=== PATIENT | male | born 1990 | race African-American/Black ===

== ENCOUNTER 2023-05-11 08:36 | Emergency (ER) | payer BC, OTHER ==
[~2023-05-11] VITALS: Ht 198.1 cm; Wt 154.1 kg
[2023-05-11] MEDS ORDERED: LEVO750T40 PO (10:44)
[2023-05-11] MEDS ORDERED: CLIN300C70 PO (10:44)
[2023-05-11] MEDS ORDERED: cloNIDine HCL 0.1 MG TAB PO ONE (10:45)
[2023-05-11] MEDS ORDERED: cefTRIAXone SOD 1,000 MG VL IM ONE (10:45)
[2023-05-11 10:47] VITALS: BP 147/100; TEMP 98.3
[2023-05-11 11:03] VITALS: PULSE 74; RESP 16; O2SAT 99
== END 2023-05-11 11:48 | disposition home or self-care (01) ==
LOC: ER 08:36
DX: N45.1 Epididymitis (principal); I10 Essential (primary) hypertension; Z98.890 Other specified postprocedural states
CPT/HCPCS: 76870; 96372; 99285; J0696

== ENCOUNTER 2024-05-12 08:39 | Emergency (ER) | payer BC, OTHER ==
[~2024-05-12] VITALS: Ht 198.1 cm; Wt 155.0 kg
[~2024-05-12 08:39] MED LIST: CLIN1CAP70 PO; LEVO750T40 PO
[2024-05-12 09:17] LABS: Urine Bacteria None Seen /hpf (None Seen); Urine Blood Negative /uL (Negative); Urine Clarity Clear (Clear); Urine Color Light-Yellow (Yellow); Urine Protein, UAD TRACE (Negative); Urine Specific Gravity 1.019 (1.001-1.035); Urine Urobilinogen Normal (Negative); Urine WBC <1 /hpf (0 - 3); Urine pH 7.5 (5.0-9.0)
[2024-05-12 09:37] VITALS: BP 171/116; PULSE 79; RESP 18; TEMP 98.5; O2SAT 98
[2024-05-12] MEDS: cloNIDine HCL 0.1 MG TAB PO ONE (10:00)
[2024-05-12] MEDS ORDERED: LISI20TA56 PO (10:02)
[2024-05-12] MEDS ORDERED: DOXY1CAP58 PO (10:02)
== END 2024-05-12 10:10 | disposition home or self-care (01) ==
LOC: ER 08:39
DX: N45.1 Epididymitis (principal); I10 Essential (primary) hypertension; Z91.199 Patient's noncompliance with other medical treatment and regimen due to unspecified reason
CPT/HCPCS: 76870; 81001